=== PATIENT | male | born 1975 | race Caucasian/White ===

== ENCOUNTER 2019-08-29 18:42 | Emergency (ER) | payer OTHER, SELFPAY ==
[2019-08-29 18:59] VITALS: BP 125/75; PULSE 87; RESP 18; TEMP 36.8; O2SAT 99; BMI 23.3
== END 2019-08-29 19:54 | disposition left against medical advice (07) ==
LOC: ER 09-26 09:07
PROVIDERS: Emergency Provider Emergency Medicine
DX: Z53.21 Procedure and treatment not carried out due to patient leaving prior to being seen by health care provider (principal)
CPT/HCPCS: 99281

== ENCOUNTER → 2020-07-12 13:45 | Outpatient (BNVA) | payer OTHER, SELFPAY | PROVIDERS: Visit Provider Nurse Practitioner Family | DX: Z20.828 Contact with and (suspected) exposure to other viral communicable diseases (principal) | CPT/HCPCS: 87635 ==

== ENCOUNTER 2023-11-12 14:08 | Emergency (ER) | payer SELFPAY ==
[2023-11-12 14:13] VITALS: BP 131/87; PULSE 95; RESP 14; TEMP 36.9; O2SAT 97
--- NOTE | 2023-11-12 14:20 | W.ED.EAR ---
HPI - Ear Problem General: Chief complaint: Ear Stated complaint: right ear pain Time Seen by Provider: 11/12/23 14:12 Source: patient Mode of arrival: ambulatory Limitations: no limitations History of Present Illness: 48-year-old male states he has been having right ear pain over the last 2 days. States its painful to touch denies any fevers denies any drainage. He states he believes he may have got some water in his ear. Associated symptoms: Reports ear or mastoid pain; Denies fever(s), headache(s) or neck pain Review of Systems Const: Denies: fever(s) or chills ENMT: Reports: ear or mastoid pain; Denies: throat pain or dental pain Card: Denies: chest pain GI: Denies: abdominal pain, nausea, vomiting or diarrhea Musc: Denies: neck pain or back pain Skin/Breast: Denies: rash Neuro: Denies: headache(s) PFSH ED PFSH: Social History Smoking and tobacco/nicotine status: current every day tobacco/nicotine user Physical Exam Const: COMMON NORMALS: no acute distress, patient oriented x3 and healthy appearing HENMT: COMMON NORMALS: normocephalic and atraumatic HEAD & SCALP: normocephalic and atraumatic OTHER: Otitis externa noted to right ear no signs of malignant otitis externa Eye: COMMON NORMALS: Equal, round and reactive pupils present and EOMs intact bilaterally PUPIL: Yes Equal, round and reactive pupils present Neck/C-Spine: COMMON NORMALS: full ROM and supple Chest: COMMONS NORMALS: normal inspection of the chest Resp: COMMON NORMALS: normal respiratory effort Extremity: COMMON NORMALS: normal to inspection and full ROM Neuro: COMMON NORMALS: patient oriented x3, moves all extremities and no focal motor deficits Psych: COMMON NORMALS: mental status grossly normal, Normal thought process present and cooperative THOUGHT PROCESS: Normal thought process present Skin: COMMON NORMALS: no rashes or lesions noted and no wounds GENERAL SKIN EXAM: no rashes or lesions noted Course Vital Signs: Vital signs: Vital Signs Temperature 98.4 F 11/12/23 14:13 Pulse Rate 95 11/12/23 14:13 Respiratory Rate 14 11/12/23 14:13 Blood Pressure 131/87 11/12/23 14:13 Pulse Oximetry 97 11/12/23 14:13 Oxygen Delivery Me thod Room Air 11/12/23 14:13 MDM - Ear Medical Decision Making Patient presents here with otitis externa to right ear will place on ofloxacin drops no signs of malignant otitis externa canals not swollen. Patient stable for discharge follow-up PCP return if worsening Medical Records I reviewed the patient's medical records. No radiology studies performed this visit Discharge Plan Discharge Patient Disposition: Home Clinical Impression: Otitis externa Condition: Stable Prescriptions: New ofloxacin 0.3 % drops 10 drp otic (ear) DAILY 7 Days Qty: 5 0RF Discharge Orders: Discharge ED (Routine); Ordered 11/12/23 Ordered By: Brenna Peralta Discharge Diet: Advance as tolerated Discharge Activity: Resume usual activity Patient Instructions: Otitis Externa - Adult Coding Level of Care Code ED Surveillance Technician for Rhoda Zhao
== END 2023-11-12 14:24 | disposition home or self-care (01) ==
PROVIDERS: Emergency Provider Emergency Medicine
DX: H60.91 Unspecified otitis externa, right ear (principal); Z72.0 Tobacco use
CPT/HCPCS: 99283

== ENCOUNTER 2025-04-08 18:00 | Emergency (ER) | payer OTHER, SELFPAY ==
[2025-04-08 18:23] VITALS: BP 119/83; PULSE 80; RESP 16; TEMP 36.7; O2SAT 98; BMI 23.3
[2025-04-08 19:28] VITALS: BP 133/89; O2SAT 95
--- NOTE | 2025-04-08 19:32 | ED_ITS ---
HPI - Neck Pain/Injury 2 General: Chief Complaint: Neck Pain/Injury Stated Complaint: R shoulder and neck pain Time Seen by Provider: 04/08/25 18:28 History of Present Illness: Chief complaint is neck and shoulder and arm pain. Patient states that yesterday he fell asleep to take a nap with a child. He states that when he woke up he had a slight crick in his neck. He states today it is much more severe. He states is severe pain and he cannot move his neck or shoulder very much. No fall or trauma or injury. No fever. No drug use. No numbness weakness or tingling in his arms or legs. No loss of bowel or bladder control. No chest pain or shortness of breath. Related Data Previous Rx's ?Medication ?Instructions ?Recorded methocarbamol 500 mg tablet 1,000 mg (2 x 500 mg) PO Q 8H PRN 04/08/25 pain #30 tabs Allergies Allergy/AdvReac Type Severity Reaction Status Date / Time No Known Allergies Allergy Verified 04/08/25 18:26 [facility] ED 2 [facility]: Social History Smoking and tobacco/nicotine status: current every day tobacco/nicotine user Physical Exam 2 Narrative: EXAM NARRATIVE: Patient sitting in the bed watching his cell phone. He will not move his neck or his right arm for me. He yells out in pain with any movement. No vertebral tenderness over his neck. No pain with range of motion of his wrist hand or elbow. He has pain with movement of the right shoulder. No swelling. Is not red or hot to the touch. He has tenderness over the paraspinal region on the right upper back with muscular spasm. He has muscular spasm in the side of his neck and tenderness over the right lateral neck but no swelling. Pupils are equal reactive to light full range ocular motion normal conjunctiva. Heart regular rhythm and rate and lung sounds are clear and abdomen soft nontender. No guarding or rebound. Extremities warm well-perfused. No calf tenderness or pitting edema in the legs. He has intact sensation in his arms and legs proximally and distally. He has strong intact pulse in his right wrist for radial pulse. No numbness on his right hand or over axillary nerve distribution. Course 2 Vital Signs: Vital signs: Vital Signs Temperature 98.0 F 04/08/25 18:23 Pulse Rate 78 04/08/25 21:01 Respiratory Rate 16 04/08/25 21:01 Blood Pressure 113/90 04/08/25 21:01 Pulse Oximetry 96 04/08/25 21:01 Oxygen Delivery Me thod Room Air 04/08/25 18:23 MDM - Neck Pain/Injury Medical Decision Making Patient presents complaining of neck and shoulder pain. Pain is clearly worse with movement. Referred cardiac is unlikely. He has had symptoms for more than 24 hours now. Troponin EKG ordered and EKG to my interpretation shows sinus rhythm with rate [address] segment changes. Troponin was negative. With more than 12 hours of symptoms and negative troponin low pretest probability I do not think patient needs a repeat troponin. Patient adamantly denies any drug use after informed discussion the importance of this question and he denies any recent hospitalization or IV access or procedures or immunosuppression or diabetes or history of cancer or anticoagulation. Epidural abscess or hematoma or discitis or osteomyelitis would be low probability based on this history. I did order urine drug screen which shows marijuana but no other drug findings. I advised patient the importance of this question and the change in his management based on risk of infection. Patient denies fever. Sed rate and CRP not elevated consistent with low probability of significant inflammatory infectious process. I advised risk of herniated disc or metastatic cancer that could cause the symptoms. He has intact motor sensation in no acute neurologic findings. Advised signs and symptoms of concern to immediately return for and potential for need for emergent surgical intervention. Patient denies any trauma or fall to indicate fracture and need for imaging emergently. White count was normal. Potassium was normal. I discussed pain medication with the patient. He states he does not want anything in the opiate class because of concerns of addiction. I discussed alternative treatment options. He already took ibuprofen an hour and a half prior to arrival. He agrees with Robaxin after informed discussion and Tylenol and I ordered acetaminophen and thousand 500 mg of Robaxin p.o. He states he will not be driving and his will be picking him up. Patient states he feels markedly improved after the medications. He states he can now move his shoulder and his neck. The patient is able to move his neck and he is moving his shoulder. He has marked improved range of motion. He denies any headache to suggest subarachnoid or meningitis. Symptoms were gradual onset. Patient is requesting discharge. Will prescribe Robaxin and advised he can take Tylenol and ibuprofen. I advised limits of ED evaluation broad differential and need for prompt outpatient follow-up and advised close return instructions. Patient is alert talkative capable and informed and expresses understanding and requesting discharge and continued outpatient management. Educated again regarding signs symptoms of worsening to watch and return for and outpatient follow-up. Lab Data 04/08/25 19:55 04/08/25 19:55 Laboratory Results WBC 8.42 10^3/uL (3.29-11.43) 04/08/25 19:55 RBC 5.45 10^6/uL (3.85-5.65) 04/08/25 19:55 Hgb 16.30 g/dL (11.27-16.99) 04/08/25 19:55 Hct 48.4 % (37-53) 04/08/25 19:55 MCV 88.8 fl (82-101) 04/08/25 19: MCH 29.9 pg (27-33) 04/08/25 19: MCHC 33.7 g/dL (30-55) 04/08/25 19:55 RDW 13.3 % (12.1-15.1) 04/08/25 19:55 Plt Count 241 10^3/cmm (157-399) 04/08/25 19:55 MPV 10.4 fL (7.4-10.4) 04/08/25 19:55 Neut % (Auto) 67.1 % 04/08/25 19:55 Lymph % (Auto) 22.7 % 04/08/25 19:55 [place] % (Auto) 5.9 % 04/08/25 19:55 Eos % (Auto) 3.2 % 04/08/25 19:55 Baso % (Auto) 0.7 % 04/08/25 19:55 Neut # (Auto) 5.65 10^3/uL (1.8-7.7) 04/08/25 19:55 Lymph # (Auto) 1.9 10^3/uL (0.8-4.8) 04/08/25 19:55 [place] # (Auto) 0.5 10^3/uL (0.2-0.9) 04/08/25 19:55 Eos # (Auto) 0.3 10^3/uL (0.0-0.8) 04/08/25 19:55 Baso # (Auto) 0.1 10^3/uL (0.0-0.1) 04/08/25 19:55 Nucleated RBC % (auto) 0 % 04/08/25 19:55 Nucleated RBCs # 0.0 /100WBC 04/08/25 19:55 ESR 2 mm/hr (0-10) 04/08/25 19:55 Sodium 140 mmol/L (136-145) 04/08/25 19:55 Potassium 4.1 mmol/L (3.5-5.1) 04/08/25 19:55 Chloride 102 mmol/L (98-107) 04/08/25 19:55 Carbon Dioxide 26 mmol/L (22-29) 04/08/25 19:55 Anion Gap 16.1 (5-19) 04/08/25 19:55 BUN 14 mg/dL (6-20) 04/08/25 19:55 Creatinine 0.8 mg/dL (0.7-1.2) 04/08/25 19:55 GFR Calculation 103.2 mL/min (90-130) 04/08/25 19:55 Glucose 99 mg/dL (65-115) 04/08/25 19:55 Calculated Osmolality 291 mOsm/kg (285-295) 04/08/25 19:55 Calcium 9.9 mg/dL (8.5-10.5) 04/08/25 19:55 Total Bilirubin 0.5 mg/dL (0.15-1.2) 04/08/25 19:55 AST 22 U/L (0-40) 04/08/25 19:55 ALT 32 U/L (0-41) 04/08/25 19:55 Alkaline Phosphatase 87 U/L (40-130) 04/08/25 19:55 Troponin T Baseline < 6 ng/L (0-15) 04/08/25 19:55 C-Reactive Protein 3.0 mg/L (0.0-4.9) 04/08/25 19:55 Total Protein 7.6 g/dL (6.6-8.7) 04/08/25 19:55 Albumin 5.1 g/dL (3.5-5.2) 04/08/25 19:55 Globulin 2.5 g/dL (1.3-4.6) 04/08/25 19:55 Urine Color Dark yellow (Yellow) A 04/08/25 20:10 Urine Appearance Clear (CLEAR) 04/08/25 20:10 Urine pH 6.5 (5-7) 04/08/25 20:10 Ur Specific [place] 1.029 (1.005-1.030) 04/08/25 20:10 Urine Protein Trace (Negative) A 04/08/25 20:10 Urine Glucose (UA) Negative (Normal) 04/08/25 20:10 Urine Ketones Negative (Negative) 04/08/25 20:10 Urine Blood Negative (Negative) 04/08/25 20:10 Urine Nitrate Negative (Negative) 04/08/25 20:10 Urine Bilirubin 1+ (Negative) H 04/08/25 20:10 Urine Urobilinogen 1.0 mg/dL (Negative) 04/08/25 20:10 Ur Leukocyte Esterase Negative (Negative) 04/08/25 20:10 Urine RBC 0-2 /hpf (0-2) 04/08/25 20:10 Urine WBC 0-5 /hpf (0-5) 04/08/25 20:10 Ur Squamous Epith Cells 0-5 /hpf (0-5) 04/08/25 20:10 Amorphous Sediment Not Reportable 04/08/25 20:10 Urine Bacteria None seen /hpf (NONE) 04/08/25 20:10 Hyaline Casts 0.40 /lpf 04/08/25 20:10 Urine Opiates Screen Negative ng/mL (Negative) 04/08/25 20:10 Ur Barbiturates Screen Negative ng/mL (Negative) 04/08/25 20:10 Ur Phencyclidine Scrn Negative ng/mL (Negative) 04/08/25 20:10 Ur Amphetamines Screen Negative ng/mL (Negative) 04/08/25 20:10 U Benzodiazepines Scrn Negative ng/mL (Negative) 04/08/25 20:10 Urine Cocaine Screen Negative ng/mL (Negative) 04/08/25 20:10 U Marijuana (THC) Screen Positive ng/mL (Negative) H 04/08/25 20:10 No radiology studies performed this visit Discharge Plan Discharge Patient Disposition: Home Clinical Impression: Acute neck pain, Muscle spasm Condition: Stable Prescriptions: New methocarbamol 500 mg tablet 1,000 mg PO Q8H PRN (Reason: pain) Qty: 30 0RF Rx Instructions: You can take up to a maximum of 3 tabs every 8 hours as needed for pain. Discharge Orders: Discharge ED (Routine); Ordered 04/08/25 Ordered By: Mario Rabago Patient Instructions: Pain Management, Patient Portal & Birgit Instructions Activity Restrictions/Additional Instructions: Follow-up on your test results with your doctor within the next 3 to 5 days. Please return immediately if worsening pain, loss of bowel or bladder control, fever, headache, chest pain or shortness of breath, weakness in your arms or legs, getting worse instead of better, any concerns. Print Language: [place] Coding Level of Care Code ED Mail Sorter for Rhoda Zhao
--- NOTE | 2025-04-08 19:58 | ECG_ITS ---
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 Measurements Intervals Kiefer Rate: 69 P: 60 WI: 166 QRS: 67 QRSD: 90 T: 58 QT: 388 QTc: 416 Interpretive Statements SINUS RHYTHM POSSIBLE RIGHT VENTRICULAR CONDUCTION DELAY [RSR (QR) IN V1/V2] No previous ECG available for comparison Electronically Signed On 04-08-2025 22:44:08 CDT by Steven Belle M.D. [email or web address]
[2025-04-08 20:02] LABS: Hematocrit 48.4 % (37-53); Hemoglobin 16.30 g/dL (11.27-16.99); Mean Corpuscular HGB Conc 33.7 g/dL (30-55); Mean Corpuscular Hemoglobin 29.9 pg (27-33); Mean Corpuscular Volume 88.8 fl (82-101); Nucleated Red Blood Cells % 0 %; Platelet Count 241 10^3/cmm (157-399); Red Blood Count 5.45 10^6/uL (3.85-5.65); White Blood Count 8.42 10^3/uL (3.29-11.43)
[2025-04-08 20:20] LABS: Troponin(5th) Baseline < 6 ng/L (0-15)
[2025-04-08 20:24] LABS: Glucose Urine UA Negative (Normal); Nitrate Urine Negative (Negative); Specific Gravity, Urine 1.029 (1.005-1.030)
[2025-04-08 20:25] LABS: Alanine Aminotransferase 32 U/L (0-41); Albumin Level 5.1 g/dL (3.5-5.2); Alkaline Phosphatase 87 U/L (40-130); Anion Gap 16.1 (5-19); Aspartate Amino Transferase 22 U/L (0-40); Blood Urea Nitrogen 14 mg/dL (6-20); Calcium 9.9 mg/dL (8.5-10.5); Carbon Dioxide 26 mmol/L (22-29); Chloride 102 mmol/L (98-107); Creatinine Clr Calc Pharmacy 103.1620; Globulin 2.5 g/dL (1.3-4.6); Glucose 99 mg/dL (65-115); Osmolality Calculated 291 mOsm/kg (285-295); Potassium 4.1 mmol/L (3.5-5.1); Sodium 140 mmol/L (136-145); Total Protein 7.6 g/dL (6.6-8.7)
[2025-04-08 20:29] LABS: Add Urine Microscopic? YES
[2025-04-08 20:30] LABS: PCP Screen Urine Negative (Negative)
[2025-04-08 21:01] VITALS: BP 113/90; PULSE 78; RESP 16; O2SAT 96
[2025-04-08 21:58] VITALS: BP 125/89; PULSE 59; RESP 16; O2SAT 98
== END 2025-04-08 21:59 | disposition home or self-care (01) ==
PROVIDERS: Emergency Provider Emergency Medicine
DX: M54.2 Cervicalgia (principal); M62.838 Other muscle spasm; Z72.0 Tobacco use
CPT/HCPCS: 36415; 80053; 80306; 81001; 84484; 85025; 85651; 86140; 93005; 99284; J9999